=== PATIENT | female | born 1955 | race Caucasian/White ===

== ENCOUNTER → 2021-01-20 | Outpatient (CLI) | payer MEDICARE | LOC: M.LAB 05:48 | PROVIDERS: ATTEND Anesthesiology | DX: Z01.812 Encounter for preprocedural laboratory examination (principal); Z20.822 Contact with and (suspected) exposure to COVID-19; E87.6 Hypokalemia ==

== ENCOUNTER → 2021-01-22 | Outpatient (CLI) | payer MEDICARE ==
[2021-01-22 10:52] LABS: CREATININE 1.1 mg/dL (0.6-1.3)
--- NOTE | 2021-01-22 12:10 | NUR ---
PT HERE FOR CT. PT HAD COLONOSCOPY LAST TUESDAY, UNSURE IF IT WAS IN THE [facility] VS. THE [facility]ERY [facility]. PT C/O THAT THERE IS "SOMETHING IN HER ARM." THIS NURSE ASSESSED PT'S RIGHT ARM. PT'S RIGHT ARM FOUND W/MINIMAL SWELLING, VEIN WHERE HER IV HAD BEEN WAS HARD AND TENDER. THIS NURSE EXPLAINED TO PT THAT SHE WAS MOST LIKELY EXPERIENCING PHLEBITIS AND THAT WAS INFLAMMATION OF THE VEIN. IT WAS RECOMMENDED TO PT THAT SHE USE WARM COMPRESSESS AT LEAST QID TO HELP W/SWELLING/PAIN. THIS NURSE STATED THAT THE SWELLING SHOULD GO DOWN IN A FEW DAYS. PT THEN STATED, "WELL, WHAT DO I DO IF IT DOESN'T?" THIS NURSE TOLD PT TO CONTACT HER PRIMARY CARE DOCTOR. PT VOICED UNDERSTANDING. INFORMED [employer]ISA SALES CORRESPONDENT, THIS INFORMATION WELL.
== END ==
LOC: M.LAB 10:00 → M.CT 11:00
PROVIDERS: ATTEND Internal Medicine Gastroenterology
DX: K59.00 Constipation, unspecified (principal); I70.0 Atherosclerosis of aorta; M47.816 Spondylosis without myelopathy or radiculopathy, lumbar region; D50.9 Iron deficiency anemia, unspecified; K56.699 Other intestinal obstruction unspecified as to partial versus complete obstruction; R93.89 Abnormal findings on diagnostic imaging of other specified body structures; R01.1 Cardiac murmur, unspecified